=== PATIENT | female | born 1960 | race Hispanic/Latino ===

== ENCOUNTER 2016-09-12 09:01 | Day surgery (SDC) | payer MEDICAID ==
[2016-09-07 11:15] LABS: Basophils % (Auto) 0.5 % (0.0-1.8); Eosinophils % (Auto) 1.2 % (0.0-4.3); Hematocrit 42.2 % (30.3-42.9); Hemoglobin 13.9 gm/dl (10.1-14.3); Mean Corpuscular HGB Conc 33 % (30-34); Mean Corpuscular Hemoglobin 32 pg (28-32); Mean Corpuscular Volume 96 fl (79-97); Platelet Count 230 K/mm3 (140-440); Red Cell Distribution Width 14.2 % (13.2-15.2)
--- NOTE | 2016-09-07 11:35 | Anesthesia Consultation ---
Anesthesia Consult and Med Hx Date of service: 09/07/16 - Airway Anesthetic Teeth Evaluation: Good ROM Head & Neck: Adequate Mental/Hyoid Distance: Adequate Mallampati Class: Class II Intubation Access Assessment: Probably Good - Pulmonary Exam CTA: Yes - Cardiac Exam Cardiac Exam: RRR - Pre-Operative Health Status ASA Pre-Surgery Classification: ASA3 Proposed Anesthetic Plan: General, TIVA - Pulmonary Hx Smoking: No - Cardiovascular System Hx Hypertension: Yes (high cholesterol) Hx Angina: Yes (maybe from anxiety) Hx Heart Murmur: Yes (palpitation since teen, ) - Central Nervous System Hx Neuromuscular Disorder: Yes (spinal bifada occult) Hx Seizures: No CVA: No Hx Psychiatric Problems: Yes (anxiety) - Gastrointestinal Hx Gastroesophageal Reflux Disease: Yes - Endocrine Hx Renal Disease: No (yearly urethral dilations since 16yo due to spinal bifada occult) Hx End Stage Renal Disease: No Hx Liver Disease: No Hx Non-Insulin Dependent Diabetes: No - Hematic Hx Anemia: No Hx Sickle Cell Disease: No - Other Systems Hx Cancer: Yes (basil cell skin cancer) Hx Obesity: Yes - Additional Comments Anesthesia Medical History Comments: NAC, extreme PONV
[2016-09-07 11:50] LABS: Anion Gap 18 mmol/L; BUN/Creatinine Ratio 14.44; Blood Urea Nitrogen 13 mg/dL (7-17); Calcium 9.2 mg/dL (8.4-10.2); Carbon Dioxide 27 mmol/L (22-30); Chloride 100.6 mmol/L (98-107); Glucose 118 mg/dL (65-100); Potassium 4.2 mmol/L (3.6-5.0); Sodium 141 mmol/L (137-145)
--- NOTE | 2016-09-11 17:32 | Short Stay Summary ---
Short Stay Documentation Date of service: 09/12/16 Narrative H&P: 56y/o G0 with postmenopausal bleeding. An endometrial biopsy was attempted in the office however the patient was unable to tolerate the procedure. Ultrasound demonstrated findings of a thickened endometrium of 1.4cm and a pedunculated myoma 5.8cm. Patient has been reassessed/reevaluated/re-examined. H&P has been reviewed. No interval changes. - History Principal diagnosis: postmenopausal bleeding; endometrial hyperplasia H&P: obtained from office Past Medical History: hypertension, other (anxiety; depression; obesity) Past Surgical History: tonsillectomy, Other (wrist surgery; bladder repair) Social history: - Allergies and Medications Current Medications: Allergies codeine Allergy (Verified 09/06/16 12:56) Vomiting levofloxacin [From Levaquin] Allergy (Verified 09/06/16 12:56) Rash lisinopril Allergy (Verified 09/06/16 12:56) Unknown ciprofloxacin [From Cipro] Adverse Reaction (Verified 09/06/16 12:56) Rash ciprofloxacin HCl [From Cipro] Adverse Reaction (Verified 09/06/16 12:56) Rash Home Medications Medication Instructions Recorded Confirmed Last Taken Type ALPRAZolam [Xanax TAB] 0.25 mg PO BID PRN 09/06/16 09/06/16 Unknown History Hydrochlorothiazide [HCTZ] 25 mg PO QDAY 09/06/16 09/06/16 Unknown History Meloxicam [Meloxicam] 15 mg PO PRN PRN 09/06/16 09/06/16 Unknown History Active Medications Famotidine (Pepcid) 20 mg PO PREOP NR Stop: 09/12/16 23:59 Lactated Ringer's (Lactated Ringers) 1,000 mls @ 100 mls/hr IV DIRECT NICOL Midazolam HCl (Versed) 2 mg IV PREOP NR Stop: 09/12/16 23:59 Scopolamine (Transderm-Scop) 1 each TD PREOP NR Stop: 09/15/16 05:59 - Physical exam General appearance: no acute distress Integumentary: no rash HEENT: Atraumatic Lungs: Clear to auscultation Breasts: deferred Heart: Regular rate Gastrointestinal: normal Female Genitourinary: deferred Rectal Exam: deferred Extremities: no ischemia Neurological: Normal gait - Brief post op/procedure progress note Date of procedure: 09/12/16 Pre-op diagnosis: postmenopausal bleeding Post-op diagnosis: same Procedure: Hysteroscopy Dilatation and curettage Anesthesia: IBIS Surgeon: MONTEZ AGUILAR Estimated blood loss: 50-100ml Pathology: list (endometrial curettings) Specimen disposition: to lab Condition: stable - Hospital course Hospital course: The patient was admitted the day of surgery underwent hysteroscopy dilatation and curettage. Please see operative note for details of surgery. Her postoperative course was uneventful. - Disposition Condition at discharge: Good Disposition: DISCHARGED TO HOME OR [facility]ELFC[facility] Short Stay Discharge Plan Activity: other (pelvic rest for 1 week) Diet: regular Additional Instructions: Follow-up with Dr. Montse Pantoja in 2 weeks Prescriptions: Ibuprofen [Motrin] 800 mg PO Q8HR PRN #60 tablet PRN Reason: Pain oxyCODONE /ACETAMINOPHEN [Percocet 5/325] 1 tab PO Q6HR PRN #30 tablet PRN Reason: Pain
[~2016-09-12 09:01] MED LIST: LACTATED RINGERS 1,000 ML IV SCH; PEPCID PO NR; TRANSDERM-SCOP TD NR; VERSED IV NR
[2016-09-12] MEDS ORDERED: NACL BACTERIOSTATIC INFILTRATI ONE (09:37)
[2016-09-12] MEDS ORDERED: DILAUDID IV PRN (09:42)
[2016-09-12] MEDS ORDERED: ZOFRAN IV PRN (09:42)
--- NOTE | 2016-09-12 10:23 | Anesthesia Day of Surgery ---
Anesthesia Day of Surgery - Day of Surgery Patient Examined: Yes Patient H&P Reviewed: Yes Patient is NPO: Yes
[2016-09-12] MEDS ORDERED: DILAUDID ONE (10:34)
[2016-09-12] MEDS ORDERED: DIPRIVAN 10 MG/ML IV ONE ×2 (10:34→12:52)
[2016-09-12] MEDS ORDERED: XYLOCAINE MPF 2% ONE (10:37)
[2016-09-12] MEDS ORDERED: BLOXIVERZ ONE (11:24)
[2016-09-12] MEDS ORDERED: SUBLIMAZE ONE (12:40)
[2016-09-12] MEDS ORDERED: SORBITOL-MANNITOL IRRIG IR ONE (13:00)
[2016-09-12] MEDS ORDERED: ZOFRAN ONE (13:03)
[2016-09-12] MEDS ORDERED: TORADOL ONE (13:08)
--- NOTE | 2016-09-12 13:35 | Post Anesthesia Evaluation ---
- Post Anesthesia Evaluation Patient Participated: Yes Airway Patent: Yes Stable Respiratory Function: Yes Nausea/Vomiting: No Temp > 96.8F: Yes Pain Manageable: Yes Adequeate Hydration: Yes Anesthesia Complications: No Block Receding Appropriately: Not Applicable Patient on Ventilator: No
[2016-09-12 14:45] VITALS: BP 139/60
--- NOTE | 2016-09-12 15:33 | Operative Report ---
Operative Report Operative Report: Date of procedure: 09/12/2016 Pre-operative diagnosis: Postmenopausal bleeding Post-operative diagnosis: Same as above; endometrial hyperplasia Procedure name(s): Hysteroscopy; dilatation and curettage Surgeon: Ayana Chahal M.D. Revenue Accountant: None Anesthesia: Gen. Endotracheal anesthesia Findings thickened endometrial lining Pathology: Endometrial curettings Indication: 56-year-old G0 who presents with postmenopausal bleeding. The patient underwent an ultrasound that demonstrated evidence of a thickened endometrium of 1.4 cm and findings of a 5 cm myoma. Procedure The patient was taken to the operating room and given general tracheal anesthesia without complication. The patient was prepped and draped in a normal sterile fashion. A bivalve speculum was placed in the patient's vagina single-tooth tenaculums placed on the anterior lip of the cervix. The cervical os was dilated with graduated dilators. A uterine sound was inserted. The hysteroscope was then placed. Insufflation of the uterine cavity was performed with normal saline. Gen. survey of the uterine cavity revealed thickened endometrium and findings consistent with a possible endometrial polyp. The hysteroscope was then removed. The polyp forceps were placed through the dilated cervical os and endometrial tissue was then removed. Sharp curettage of the endometrial surface was performed until cry was achieved. An abundant amount of endometrial tissue was extracted from the endometrial cavity. The remainder of the vaginal instruments were then removed atraumatically. The patient was then successfully extubated taken to the recovery room. All sponge laps and needle counts were correct 2.
== END 2016-09-12 15:00 | disposition home or self-care (01) ==
LOC: OR 09:01
PROVIDERS: ATTEND Obstetrics & Gynecology
DX: N85.8 Other specified noninflammatory disorders of uterus (principal); D25.9 Leiomyoma of uterus, unspecified; I10 Essential (primary) hypertension; F41.9 Anxiety disorder, unspecified; F32.9 Major depressive disorder, single episode, unspecified; K21.9 Gastro-esophageal reflux disease without esophagitis; E66.9 Obesity, unspecified; Z68.42 Body mass index [BMI] 45.0-49.9, adult; Z98.890 Other specified postprocedural states; Z85.828 Personal history of other malignant neoplasm of skin
CPT/HCPCS: 36415; 58558; 80048; 84703; 85025; 88305; J1885; J2405; J2704; J3010; J7120; J1170; J2250; J2710